=== PATIENT | female | born 1955 | race Caucasian/White ===

== ENCOUNTER 2020-01-20 10:21 | Inpatient (IN) ==
[2020-01-20 11:01] LABS: INR 1.7; Prothrombin Time 19.3 Seconds (9.4-12.1)
[2020-01-20 11:22] LABS: Immature Granulocytes % 0.4 % (0-4)
[2020-01-20 11:23] LABS: Eosinophils % 3.4 %; Immature Platelets 2.7 % (1.1-6.1); Lymphocytes % 10.8 %; Mean Corpuscular HGB Conc 31.3 g/dL (31.6-35.5); Mean Corpuscular Hemoglobin 31.1 pg (28.0-33.3); Mean Corpuscular Volume 99.4 fL (83.0-100.0); Mean Platelet Volume 10.2 fL (9.4-12.4); Monocytes % 9.2 %; Platelet Count 100 K/mcL (140-400); Red Blood Count 3.22 M/mcL (3.82-4.97); Red Cell Distribution Width 16.3 % (11.5-14.5); Segmented Neutrophils % 75.6 %
[2020-01-20 11:24] LABS: Basophils % 0.6 %; Eosinophils # 0.2 K/mcL (0.0-0.6); Lymphocytes # 0.8 K/mcL (0.6-4.6); Monocytes # 0.6 K/mcL (0.0-1.3); Neutrophils # 5.3 K/mcL (1.6-8.9)
[2020-01-20 11:26] LABS: Alanine Aminotransferase 8 Units/L (7-52); Albumin 3.2 g/dL (3.5-5.7); Albumin/Globulin Ratio 0.8 (1.1-2.2); Alkaline Phosphatase 51 Units/L (34-104); Aspartate Amino Transferase 20 Units/L (13-39); BUN/Creatinine Ratio 19 (6-26); Bilirubin,Direct 0.5 mg/dL (0.0-0.2); Bilirubin,Indirect 0.7 mg/dL (0.0-1.0); Bilirubin,Total 1.2 mg/dL (0.3-1.0); Blood Urea Nitrogen 29 mg/dL (8-23); Calcium 9.6 mg/dL (8.6-10.3); Carbamazepine (Tegretol) 7 mcg/mL (4-12); Carbon Dioxide 21 mEq/L (23-29); Chloride 112 mEq/L (98-107); Globulin 3.9 g/dL (2.4-3.5); Glucose 143 mg/dL (70-105); Osmolality,Calculated 300 (280-300); Potassium 5.8 mEq/L (3.5-5.1); Sodium 141 mEq/L (136-145); Total Protein 7.1 g/dL (6.4-8.9); Troponin I < 0.03 ng/mL (< 0.04); eGFR For African Americans 41 (> 60); eGFR For Non-African Americans 34 (> 60)
[2020-01-20 11:50] LABS: Bacteria,Urine Few per hpf (None-Few); Bilirubin,Urine Negative (Negative); Blood,Urine Negative (Negative); Budding Yeast,Urine Few per hpf (None Seen); Clarity,Urine Turbid (Clear); Color,Urine Yellow (Yellow); Glucose,Urine (UA) Normal (Normal); Hyaline Casts,Urine Many per lpf (None Seen); Ketones,Urine Trace mg/dL (Negative); Leukocyte Esterase,Urine Large (Negative); Mucus,Urine Few per lpf (None-Few); Nitrite,Urine Negative (Negative); PH,Urine 5.5 pH Units (5.0-8.0); Protein,Urine 30 mg/dL (Neg-Trace); Specific Gravity,Urine 1.025 (1.010-1.025); Squamous Epithelial Cell,Urine Few per hpf (None-Few); Transitional Epi Cells,Urine Few per hpf (None-Few); Urobilinogen,Urine Normal (Normal); WBC,Urine TNTC per hpf (0-3)
[2020-01-20] MEDS ORDERED: 0.9 % Sodium Chloride 1,000 ML IVC ONE (12:02)
[2020-01-20] MEDS ORDERED: *HR* Dextrose 50 % in Water (Vial) 50 ML VIAL IVP ONE (12:02)
[2020-01-20] MEDS ORDERED: Insulin Human Regular 10 UNIT in 0.9 % Sodium Chloride 10 ML IV ONE (12:15)
[2020-01-20] MEDS ORDERED: Naloxone 0.4 MG/ML INJ IVP PRN ×2 (12:19→15:53)
[2020-01-20] MEDS ORDERED: Ondansetron ODT 4 MG TAB.RAPDIS SL PRN (12:19)
[2020-01-20] MEDS ORDERED: Mag Hydrox/Al Hydrox/Simeth 30 ML UDC PO PRN (12:19)
[2020-01-20] MEDS: Calcium Gluconate 1gm/50mL 1 GM/50 ML BAG IVPB SCH ×2 (12:43→14:26)
[2020-01-20 12:48] LABS: Magnesium 2.8 mg/dL (1.6-2.6)
[2020-01-20 14:38] LABS: Calcium 9.6 mg/dL (8.6-10.3); Potassium 5.7 mEq/L (3.5-5.1)
[2020-01-20] MEDS ORDERED: Ondansetron 4 MG/2 ML VIAL IVP PRN (15:53)
[2020-01-20] MEDS ORDERED: Dextrose Gel 15 GM/37.5 ML TUBE PO PRN ×2 (15:56)
[2020-01-20] MEDS ORDERED: *HR* Dextrose 50 % in Water (Vial) 50 ML VIAL IVP PRN (15:56)
[2020-01-20] MEDS ORDERED: D5% in Water 1,000 ML IVC PRN (15:56)
[2020-01-20] MEDS ORDERED: cefTRIAXone 1,000 MG in 0.9 % Sodium Chloride Mini Bag 100 ML IVPB ONE (16:00)
[2020-01-20] MEDS: Insulin LISPRO 300 UNITS/3 ML VIAL SQ SCH ×2 (17:31→21:30)
[2020-01-20] MEDS ORDERED: *HR* Labetalol 20 MG/4 ML SYRINGE IVP PRN (19:22)
[2020-01-20] MEDS: *HR* Heparin 5,000 UNIT/ML VIAL SQ SCH (21:07)
[2020-01-20] MEDS: carBAMazepine 200 MG TABLET PO SCH (21:13)
[2020-01-20] MEDS: Lactulose Oral Soln 20 GM/30 ML UDC PO SCH (21:13)
[2020-01-21] MEDS: *HR* Heparin 5,000 UNIT/ML VIAL SQ SCH ×3 (04:59→21:24)
[2020-01-21 05:23] LABS: Hematocrit 31.6 % (35.3-44.9)
[2020-01-21 05:26] LABS: Basophils % 0.5 %; Eosinophils # 0.3 K/mcL (0.0-0.6); Eosinophils % 3.2 %; Hemoglobin 9.6 g/dL (11.5-15.4); Immature Granulocytes % 0.5 % (0-4); Immature Platelets 2.2 % (1.1-6.1); Lymphocytes # 0.8 K/mcL (0.6-4.6); Lymphocytes % 10.3 %; Mean Corpuscular HGB Conc 30.4 g/dL (31.6-35.5); Mean Corpuscular Hemoglobin 30.8 pg (28.0-33.3); Mean Corpuscular Volume 101.3 fL (83.0-100.0); Mean Platelet Volume 10.5 fL (9.4-12.4); Monocytes # 0.9 K/mcL (0.0-1.3); Monocytes % 11.6 %; Neutrophils # 5.8 K/mcL (1.6-8.9); Red Blood Count 3.12 M/mcL (3.82-4.97); Red Cell Distribution Width 16.3 % (11.5-14.5); Segmented Neutrophils % 73.9 %; White Blood Count 7.8 K/mcL (4.3-11.1)
[2020-01-21 05:42] LABS: Albumin 3.1 g/dL (3.5-5.7); Albumin/Globulin Ratio 0.8 (1.1-2.2); Bilirubin,Total 1.2 mg/dL (0.3-1.0); Calcium 9.9 mg/dL (8.6-10.3); Globulin 3.9 g/dL (2.4-3.5); Potassium 5.7 mEq/L (3.5-5.1)
[2020-01-21 06:18] LABS: Platelet Count 89 K/mcL (140-400)
[2020-01-21] MEDS: Insulin LISPRO 300 UNITS/3 ML VIAL SQ SCH ×4 (08:08→21:24)
[2020-01-21] MEDS: carBAMazepine 200 MG TABLET PO SCH ×2 (08:18→21:08)
[2020-01-21] MEDS: FLUoxetine 20 MG CAPSULE PO SCH (08:19)
[2020-01-21] MEDS: Aspirin Enteric Coated 81 MG Tablet PO SCH (08:19)
[2020-01-21] MEDS: Lactulose Oral Soln 20 GM/30 ML UDC PO SCH ×3 (09:13→21:08)
[2020-01-21] MEDS: cefTRIAXone 1,000 MG in Water for inj. (sterile) 10 ML IVP SCH (15:04)
[2020-01-21] MEDS: *HR* LORazepam 0.5 MG TABLET PO SCH (21:08)
[2020-01-21] MEDS: Metoprolol 100 MG TABLET PO SCH (21:08)
[2020-01-22] MEDS: *HR* Heparin 5,000 UNIT/ML VIAL SQ SCH ×3 (05:20→21:21)
[2020-01-22 05:21] LABS: Hematocrit 29.8 % (35.3-44.9); Hemoglobin 9.5 g/dL (11.5-15.4); Immature Platelets 2.4 % (1.1-6.1); Mean Corpuscular HGB Conc 31.9 g/dL (31.6-35.5); Mean Corpuscular Hemoglobin 31.8 pg (28.0-33.3); Mean Corpuscular Volume 99.7 fL (83.0-100.0); Mean Platelet Volume 10.5 fL (9.4-12.4); Red Blood Count 2.99 M/mcL (3.82-4.97); Red Cell Distribution Width 16.4 % (11.5-14.5); White Blood Count 8.6 K/mcL (4.3-11.1)
[2020-01-22 05:41] LABS: Calcium 9.3 mg/dL (8.6-10.3); Potassium 4.4 mEq/L (3.5-5.1)
[2020-01-22] MEDS: Insulin LISPRO 300 UNITS/3 ML VIAL SQ SCH ×4 (08:12→21:05)
[2020-01-22] MEDS: Metoprolol 100 MG TABLET PO SCH ×2 (08:13→21:15)
[2020-01-22] MEDS: Lactulose Oral Soln 20 GM/30 ML UDC PO SCH ×3 (08:13→21:16)
[2020-01-22] MEDS: *HR* LORazepam 0.5 MG TABLET PO SCH ×2 (08:13→21:15)
[2020-01-22] MEDS: Aspirin Enteric Coated 81 MG Tablet PO SCH (08:27)
[2020-01-22] MEDS: FLUoxetine 20 MG CAPSULE PO SCH (08:27)
[2020-01-22] MEDS: carBAMazepine 200 MG TABLET PO SCH ×2 (08:27→21:16)
[2020-01-22] MEDS ORDERED: NON-FORMULARY MEDICATION 1 EACH EACH (Fluoxetine Hcl [Fluoxetine Hcl] 40 MG) PO SCH (09:00)
[2020-01-22] MEDS ORDERED: Fluconazole 100 MG TABLET PO SCH (11:00)
[2020-01-22] MEDS ORDERED: Fluconazole 150 MG TABLET PO ONE (11:00)
[2020-01-22 15:46] LABS: Source of Body Fluid ascites
[2020-01-22] MEDS: cefTRIAXone 1,000 MG in Water for inj. (sterile) 10 ML IVP SCH (16:41)
[2020-01-22] MEDS: *HR* OxyCODONE/APAP 5/325 TABLET PO PRN (16:58)
[2020-01-22] MEDS: Furosemide 20 MG TABLET PO SCH (16:58)
[2020-01-22 18:03] LABS: Appearance of Body Fluid Cloudy (Clear); Volume of Body Fluid 50 mL
[2020-01-23] MEDS: *HR* Heparin 5,000 UNIT/ML VIAL SQ SCH ×3 (04:36→22:33)
[2020-01-23 08:52] LABS: Red Cell Distribution Width 16.4 % (11.5-14.5)
[2020-01-23 08:54] LABS: Hematocrit 30.8 % (35.3-44.9); Hemoglobin 9.5 g/dL (11.5-15.4); Immature Platelets 3.8 % (1.1-6.1); Mean Corpuscular HGB Conc 30.8 g/dL (31.6-35.5); Mean Corpuscular Hemoglobin 31.4 pg (28.0-33.3); Mean Corpuscular Volume 101.7 fL (83.0-100.0); Mean Platelet Volume 10.6 fL (9.4-12.4); Red Blood Count 3.03 M/mcL (3.82-4.97); White Blood Count 6.3 K/mcL (4.3-11.1)
[2020-01-23 09:09] LABS: Calcium 9.5 mg/dL (8.6-10.3); Potassium 3.9 mEq/L (3.5-5.1)
[2020-01-23] MEDS: *HR* LORazepam 0.5 MG TABLET PO SCH ×2 (09:52→22:19)
[2020-01-23] MEDS: Lactulose Oral Soln 20 GM/30 ML UDC PO SCH ×3 (09:52→22:19)
[2020-01-23] MEDS: *HR* OxyCODONE/APAP 5/325 TABLET PO PRN (09:52)
[2020-01-23] MEDS: Insulin LISPRO 300 UNITS/3 ML VIAL SQ SCH ×4 (09:58→22:20)
[2020-01-23] MEDS: Aspirin Enteric Coated 81 MG Tablet PO SCH (10:07)
[2020-01-23] MEDS: carBAMazepine 200 MG TABLET PO SCH ×2 (10:07→22:18)
[2020-01-23] MEDS: Furosemide 20 MG TABLET PO SCH ×2 (10:07→16:46)
[2020-01-23] MEDS: Metoprolol 100 MG TABLET PO SCH ×2 (10:07→22:19)
[2020-01-23] MEDS: FLUoxetine 20 MG CAPSULE PO SCH (10:07)
[2020-01-23] MEDS: Spironolactone 25 MG TABLET PO SCH (10:07)
[2020-01-23] MEDS ORDERED: Vancomycin 2,000 MG/520 ML IV.SOLN IVPB ONE (11:17)
[2020-01-23] MEDS: cefTRIAXone 1,000 MG in Water for inj. (sterile) 10 ML IVP SCH (16:46)
[2020-01-24] MEDS ORDERED: Vancomycin 2,000 MG/520 ML IV.SOLN IVPB SCH (01:00)
[2020-01-24] MEDS: *HR* Heparin 5,000 UNIT/ML VIAL SQ SCH ×3 (05:53→21:03)
[2020-01-24 05:59] LABS: Calcium 8.8 mg/dL (8.6-10.3); Potassium 3.9 mEq/L (3.5-5.1)
[2020-01-24] MEDS: Insulin LISPRO 300 UNITS/3 ML VIAL SQ SCH ×4 (08:14→22:16)
[2020-01-24] MEDS: Lactulose Oral Soln 20 GM/30 ML UDC PO SCH ×3 (08:15→21:03)
[2020-01-24] MEDS ORDERED: *HR* LORazepam 2 MG/ML VIAL IVP ONE (08:24)
[2020-01-24] MEDS: FLUoxetine 20 MG CAPSULE PO SCH (14:44)
[2020-01-24] MEDS: Aspirin Enteric Coated 81 MG Tablet PO SCH (14:44)
[2020-01-24] MEDS: Spironolactone 25 MG TABLET PO SCH (14:44)
[2020-01-24] MEDS: *HR* LORazepam 0.5 MG TABLET PO SCH (14:47)
[2020-01-24] MEDS: Furosemide 20 MG TABLET PO SCH ×2 (14:47→16:41)
[2020-01-24] MEDS: Metoprolol 100 MG TABLET PO SCH (14:48)
[2020-01-24] MEDS: carBAMazepine 200 MG TABLET PO SCH (14:48)
[2020-01-24] MEDS: cefTRIAXone 1,000 MG in Water for inj. (sterile) 10 ML IVP SCH (16:41)
[2020-01-24] MEDS: *HR* LORazepam 2 MG/ML VIAL IVP SCH (21:02)
[2020-01-25 00:18] LABS: Mean Platelet Volume 10.6 fL (9.4-12.4)
[2020-01-25 00:20] LABS: Hemoglobin 9.9 g/dL (11.5-15.4); Immature Platelets 2.9 % (1.1-6.1); Mean Corpuscular HGB Conc 31.9 g/dL (31.6-35.5); Mean Corpuscular Hemoglobin 32.1 pg (28.0-33.3); Mean Corpuscular Volume 100.6 fL (83.0-100.0); Red Blood Count 3.08 M/mcL (3.82-4.97); Red Cell Distribution Width 16.1 % (11.5-14.5); White Blood Count 6.4 K/mcL (4.3-11.1)
[2020-01-25 00:34] LABS: Calcium 8.8 mg/dL (8.6-10.3); Potassium 3.5 mEq/L (3.5-5.1)
[2020-01-25] MEDS: carBAMazepine 200 MG TABLET PO SCH ×3 (05:04→21:23)
[2020-01-25] MEDS: Metoprolol 100 MG TABLET PO SCH ×3 (05:04→21:23)
[2020-01-25] MEDS: *HR* Heparin 5,000 UNIT/ML VIAL SQ SCH ×3 (05:11→21:23)
[2020-01-25] MEDS: Insulin LISPRO 300 UNITS/3 ML VIAL SQ SCH ×4 (07:25→23:45)
[2020-01-25] MEDS: Furosemide 20 MG TABLET PO SCH ×2 (10:06→17:04)
[2020-01-25] MEDS: Spironolactone 25 MG TABLET PO SCH (10:06)
[2020-01-25] MEDS: FLUoxetine 20 MG CAPSULE PO SCH (10:06)
[2020-01-25] MEDS: Aspirin Enteric Coated 81 MG Tablet PO SCH (10:07)
[2020-01-25] MEDS: *HR* LORazepam 2 MG/ML VIAL IVP SCH ×2 (10:07→21:06)
[2020-01-25] MEDS: Cefdinir 300 MG CAPSULE PO SCH ×2 (10:07→21:23)
[2020-01-25] MEDS: Lactulose Oral Soln 20 GM/30 ML UDC PO SCH ×3 (10:08→21:06)
[2020-01-25] MEDS: Vancomycin 1,250 MG/262.5 ML IV.SOLN IVPB SCH (13:27)
[2020-01-26] MEDS: *HR* Heparin 5,000 UNIT/ML VIAL SQ SCH ×3 (06:23→21:19)
[2020-01-26] MEDS: Insulin LISPRO 300 UNITS/3 ML VIAL SQ SCH ×4 (10:40→20:51)
[2020-01-26] MEDS: Cefdinir 300 MG CAPSULE PO SCH (10:41)
[2020-01-26] MEDS: FLUoxetine 20 MG CAPSULE PO SCH (10:41)
[2020-01-26] MEDS: Spironolactone 25 MG TABLET PO SCH (10:41)
[2020-01-26] MEDS: Metoprolol 100 MG TABLET PO SCH ×2 (10:41→20:51)
[2020-01-26] MEDS: carBAMazepine 200 MG TABLET PO SCH ×2 (10:41→20:50)
[2020-01-26] MEDS: *HR* LORazepam 2 MG/ML VIAL IVP SCH ×2 (10:42→20:48)
[2020-01-26] MEDS: Lactulose Oral Soln 20 GM/30 ML UDC PO SCH ×3 (10:42→20:51)
[2020-01-26] MEDS: Furosemide 20 MG TABLET PO SCH ×2 (10:42→17:08)
[2020-01-26] MEDS: Aspirin Enteric Coated 81 MG Tablet PO SCH (10:42)
[2020-01-26] MEDS: Vancomycin 1,250 MG/262.5 ML IV.SOLN IVPB SCH (12:28)
[2020-01-27] MEDS ORDERED: Haloperidol Lactate 5 MG/ML VIAL IVP ONE (03:08)
[2020-01-27] MEDS: *HR* Heparin 5,000 UNIT/ML VIAL SQ SCH ×2 (05:18→12:44)
[2020-01-27] MEDS: Spironolactone 25 MG TABLET PO SCH (07:40)
[2020-01-27] MEDS: Lactulose Oral Soln 20 GM/30 ML UDC PO SCH (07:40)
[2020-01-27] MEDS: *HR* LORazepam 2 MG/ML VIAL IVP SCH (07:40)
[2020-01-27] MEDS: Furosemide 20 MG TABLET PO SCH (07:40)
[2020-01-27] MEDS: Metoprolol 100 MG TABLET PO SCH (07:40)
[2020-01-27] MEDS: FLUoxetine 20 MG CAPSULE PO SCH (07:41)
[2020-01-27] MEDS: carBAMazepine 200 MG TABLET PO SCH (07:41)
[2020-01-27] MEDS: Aspirin Enteric Coated 81 MG Tablet PO SCH (07:41)
[2020-01-27] MEDS: Insulin LISPRO 300 UNITS/3 ML VIAL SQ SCH ×2 (07:43→12:47)
[2020-01-27 10:36] VITALS: BP 116/74
[2020-01-27 10:45] LABS: Hemoglobin 9.1 g/dL (11.5-15.4)
[2020-01-27 10:47] LABS: Basophils % 0.4 %; Eosinophils # 0.2 K/mcL (0.0-0.6); Eosinophils % 4.9 %; Hematocrit 28.8 % (35.3-44.9); Immature Granulocytes % 0.6 % (0-4); Immature Platelets 2.5 % (1.1-6.1); Lymphocytes # 0.6 K/mcL (0.6-4.6); Lymphocytes % 12.8 %; Mean Corpuscular HGB Conc 31.6 g/dL (31.6-35.5); Mean Corpuscular Hemoglobin 31.9 pg (28.0-33.3); Mean Corpuscular Volume 101.1 fL (83.0-100.0); Mean Platelet Volume 10.6 fL (9.4-12.4); Monocytes # 0.6 K/mcL (0.0-1.3); Neutrophils # 3.4 K/mcL (1.6-8.9); Red Blood Count 2.85 M/mcL (3.82-4.97); Segmented Neutrophils % 68.3 %; White Blood Count 4.9 K/mcL (4.3-11.1)
[2020-01-27 11:01] LABS: Platelet Count 81 K/mcL (140-400)
[2020-01-27 11:06] LABS: Calcium 8.5 mg/dL (8.6-10.3)
[2020-01-27] MEDS: Vancomycin 1,250 MG/262.5 ML IV.SOLN IVPB SCH (12:46)
== END 2020-01-27 15:47 | DRG 432 ==
LOC: 3BNU 10:21 → EMEROOARM 10:21 → SUATTDRO 14:00 → 3BNU 14:36 → SUATTDRO 01-21 17:49 → 3ANU 01-24 11:32
PROVIDERS: ADMIT Family Medicine; ATTEND Internal Medicine